=== PATIENT | male | born 1960 | race Caucasian/White ===

== ENCOUNTER → 2018-01-24 07:11 | Outpatient (CLI) | payer OTHER, SELFPAY ==
[2018-01-24 08:53] LABS: Add Manual Diff / Slide Review NO; Basophils Percent Auto 0.8 % (0-2); Eosinophils Percent Auto 4.6 % (2-4); Hematocrit 42.6 % (41-53); Hemoglobin 14.6 g/dL (13.5-17.5); Lymphocytes Percent Auto 36.6 % (25-40); Mean Corpuscular HGB Conc 34.2 % (30-36); Mean Corpuscular Hemoglobin 28.7 PG (26-34); Mean Corpuscular Volume 84.2 fL (80-100); Monocytes Percent Auto 5.4 % (3-14); Neutrophils Absolute Auto 3700 /uL (3000-5900); Neutrophils Percent Auto 52.6 % (50-75); Platelet Count 305 X10^3/uL (150-400); Red Blood Cell Count 5.07 X10^6/uL (4.5-5.9)
[2018-01-24 09:15] LABS: Alanine Aminotransferase 27 IU/L (21-72); Albumin 4.1 g/dL (3.5-5.0); Albumin Globulin Ratio 1.4 (1.0-2.8); Alkaline Phosphatase 50 U/L (38-126); Aspartate Aminotransferase 23 IU/L (17-59); BUN Creatinine Ratio 24.3 (6-22); Bilirubin Total 0.5 mg/dL (0.2-1.3); Blood Urea Nitrogen 17 mg/dL (9-20); Calcium 9.5 mg/dL (8.4-10.2); Carbon Dioxide 31 mmol/L (22-32); Chloride 103 mmol/L (98-107); Cholesterol 216 mg/dL (140-199); Estimated Glomerular Filt Rate > 60.0 mL/min (>60); Glucose 95 mg/dL (70-100); HDL Cholesterol 41 mg/dL (40-60); LDL Cholesterol Calculated 135 mg/dL (<100); Potassium 3.8 mmol/L (3.4-5.1); Sodium 144 mmol/L (137-145); Total Protein 7.1 g/dL (6.3-8.2); Triglycerides 202 mg/dL (35-150)
[2018-01-24 09:35] LABS: Thyroid Stimulating Hormone 1.34 uIU/mL (0.47-4.68)
[2018-01-24 20:14] LABS: HEMOLYSIS < 15 (0-50); Prostate Specific Antigen Scrn 2.47 ng/mL (0.1-4.0)
== END ==
PROVIDERS: PCP Family Medicine; Visit Provider Family Medicine
DX: Z00.00 Encounter for general adult medical examination without abnormal findings (principal); Z12.5 Encounter for screening for malignant neoplasm of prostate
CPT/HCPCS: 36415; 80053; 80061; 84443; 85025; G0103

== ENCOUNTER → 2018-11-01 15:19 | Outpatient (CLI) | payer OTHER, SELFPAY ==
[2018-11-01 16:13] LABS: Add Manual Diff / Slide Review NO; Basophils Absolute Auto 100 /uL (0-100); Eosinophils Absolute Auto 400 /uL (0-450); Eosinophils Percent Auto 5.3 % (2-4); Hematocrit 42.6 % (41-53); Hemoglobin 14.4 g/dL (13.5-17.5); Lymphocytes Absolute Auto 2200 /uL (1100-4500); Lymphocytes Percent Auto 32.3 % (25-40); Mean Corpuscular HGB Conc 33.8 % (30-36); Mean Corpuscular Hemoglobin 28.5 PG (26-34); Mean Corpuscular Volume 84.3 fL (80-100); Monocytes Absolute Auto 500 /uL (0-900); Monocytes Percent Auto 7.3 % (3-14); Neutrophils Absolute Auto 3700 /uL (1500-7000); Neutrophils Percent Auto 54.1 % (50-75); Platelet Count 309 X10^3/uL (150-400); Red Blood Cell Count 5.05 X10^6/uL (4.5-5.9); Red Cell Distribution Width 14.3 % (11.6-14.8); White Blood Cell Count 6.9 X10^3/uL (4.5-11.0)
[2018-11-01 16:15] LABS: Alanine Aminotransferase 26 IU/L (21-72); Albumin 4.2 g/dL (3.5-5.0); Albumin Globulin Ratio 1.7 (1.0-2.8); Alkaline Phosphatase 53 U/L (38-126); Aspartate Aminotransferase 22 IU/L (17-59); BUN Creatinine Ratio 26.3 (6-22); Bilirubin Total 0.4 mg/dL (0.2-1.3); Blood Urea Nitrogen 21 mg/dL (9-20); Calcium 9.8 mg/dL (8.4-10.2); Carbon Dioxide 29 mmol/L (22-32); Chloride 104 mmol/L (98-107); Estimated Glomerular Filt Rate > 60.0 mL/min (>60); Globulin 2.5 g/dL (1.7-4.1); Glucose 99 mg/dL (80-110); HEMOLYSIS < 15 (0-50); Potassium 5.2 mmol/L (3.4-5.1); Sodium 141 mmol/L (137-145); Total Protein 6.7 g/dL (6.3-8.2)
[2018-11-01 16:45] LABS: Thyroid Stimulating Hormone 0.43 uIU/mL (0.47-4.68)
== END ==
PROVIDERS: PCP Family Medicine; Visit Provider Physician Assistant
DX: E04.9 Nontoxic goiter, unspecified (principal)
CPT/HCPCS: 36415; 80053; 84443; 85025

== ENCOUNTER → 2018-11-02 07:40 | Outpatient (CLI) | payer OTHER, SELFPAY ==
--- NOTE | 2018-11-02 07:42 | DI.US.S_ITS ---
PROCEDURE: US THYROID INDICATIONS: MASS RIGHT THYROID TECHNIQUE: Real-time scanning was performed of the thyroid gland, with image documentation. COMPARISON: None. FINDINGS: Right: Thyroid lobe measures 6.4 x 3.4 x 3.1 cm, and is homogeneous in echotexture. Left: Thyroid lobe measures 6.9 x 3.1 x 2.8 cm, and is homogenous in echotexture. Isthmus: 4 mm thick. Nodule number: 1 Location: Right upper pole Size: 2.5 x 2.4 x 2.3 cm. Composition: Predominantly solid, spongiform Echogenicity: Isoechoic Shape: wider than tall. Margins: Smooth Echogenic foci: Punctate Total points: 6 ACR TI-RADS category: Moderately suspicious Nodule number: 2 Location: Mid right lobe Size: 2.9 x 2.4 x 2.4 cm. Composition: Predominantly solid Echogenicity: Isoechoic Shape: wider than tall. Margins: Smooth Echogenic foci: None Total points: 3 ACR TI-RADS category: Mildly suspicious Nodule number: 3 Location: Mid left lobe Size: 1.7 x 1.4 x 1.0 cm. Composition: spongiform Echogenicity: Hypoechoic Shape: wider than tall. Margins: Smooth Echogenic foci: None Total points: 2 ACR TI-RADS category: Not suspicious Nodule number: 4 Location: Inferior pole left lobe Size: 2.9 x 2.7 x 2.5 cm. Composition: Solid Echogenicity: Hypoechoic Shape: wider than tall. Margins: Smooth Echogenic foci: Punctate Total points: 7 ACR TI-RADS category: Highly suspicious Numerous additional smaller thyroid nodules are present bilaterally IMPRESSION: Multiple bilateral thyroid nodules. Recommend further evaluation with ultrasound-guided fine needle aspiration of nodule #4, and nodule #1 in the left and right lobes, respectively. ACR TI-RADS definitions and recommendations: TI-RADS 1 (benign): 0 points. FNA not needed. TI-RADS 2 (not suspicious): 2 points. FNA not needed. TI-RADS 3 (mildly suspicious): 3 points. * FNA if 2.5 cm or larger, follow up if 1.5 cm or larger (at 1, 3, and 5 years). TI-RADS 4 (moderately suspicious): 4-6 points. * FNA if 1.5 cm or larger, follow up if 1 cm or larger (at 1, 2, 3, and 5 years). TI-RADS 5 (highly suspicious): 7 points or more. * FNA if 1 cm or larger, follow up if 0.5 cm or larger (every year for 5 years). Dictated by: Clark Jordan M.D. on 11/02/2018 at 17:09 Approved by: Clark Jordan M.D. on 11/02/2018 at 17:15
== END ==
PROVIDERS: PCP Family Medicine; Visit Provider Physician Assistant
DX: E04.2 Nontoxic multinodular goiter (principal)
CPT/HCPCS: 76536

== ENCOUNTER → 2018-11-07 08:04 | Outpatient (CLI) | payer OTHER, SELFPAY ==
--- NOTE | 2018-11-07 08:33 | DI.CT.S_ITS ---
PROCEDURE: CT SOFT TISSUE NECK W CON INDICATIONS: Mass right side of neck TECHNIQUE: After the administration of intravenous contrast, 3.0 mm axial sections acquired from the sella to the aortic arch. Additional oblique axial 3.0 mm sections acquired through the pharynx. 3 mm thick coronal and sagittal reformats were generated. For radiation dose reduction, the following was used: automated exposure control. COMPARISON: [facility], , US THYROID, 11/02/2018, 8:07. FINDINGS: Image quality: Excellent. Lymph nodes: No enlarged lymph nodes seen throughout the neck. Vessels: Visualized vasculature appears patent. Neck spaces: The oropharynx, nasopharynx, and pharynx demonstrate no mucosal lesions. The vocal cords, false vocal cords, pyriform sinuses, epiglottis, vallecula, and tongue base all appear normal. Extramucosal spaces appear unremarkable. Glands: The parotid and submandibular glands appear normal. Thyroid gland is enlarged and contains multiple heterogeneous enhancing nodules.. Miscellaneous: Visualized brain and orbits appear normal. Lung apices appear clear. Superficial soft tissues appear normal. Bones: No suspicious bony lesions. Spine degenerative disc disease and facet arthropathy.Visualized sinuses and mastoids appear unremarkable. IMPRESSION: 1. Numerous bilateral thyroid nodules not significantly changed compared to prior thyroid ultrasound. Recommend ultrasound guided fine needle aspiration of dominant right and left thyroid lobe nodules. 2. No lymphadenopathy based on size criteria. 3. No mucosal based masses. Dictated by: Aleah Azlu MD, PhD on 11/07/2018 at 13:46 Approved by: Aleah Azul MD, PhD on 11/07/2018 at 13:51
== END ==
PROVIDERS: PCP Family Medicine; Visit Provider Physician Assistant
DX: E04.2 Nontoxic multinodular goiter (principal)
CPT/HCPCS: 70491; Q9967

== ENCOUNTER 2019-01-15 09:24 | Day surgery (SDC) | payer OTHER, SELFPAY ==
[2019-01-12 14:10] VITALS: BMI 29.1
[2019-01-15] VITALS (12 sets, daily range): BP systolic 115–135; BP diastolic 70–85; PULSE 59–88; RESP 12–20; TEMP 35.9–36.9; O2SAT 93–96; BMI 28.5
--- NOTE | 2019-01-15 | PATH_ITS ---
[facility] Accession Number: [id number] . 01 Material submitted: . thyroid gland - RIGHT THYROID LOBE . 01 Clinical history: . A: RIGHT THYROID LOBE, STITCH SANTOS ISTHMUS . 02 Diagnosis: Right Thyroid Lobe, Hemithyroidectomy: Nodular hyperplasia with dominant colloid nodule. No evidence of carcinoma. MRV 01/17/2019 1535 Local . 02 Comment: As part of routine design quality engineer, Dr. Naqvi has reviewed this case and agrees with the above diagnosis. . 02 Electronically signed: . Daniel Voss MD, PhD, Pathologist NPI- [id number] . 01 Gross description: . Received in formalin, labeled right thyroid lobe, stitch santos isthmus, is a right thyroid lobe and isthmus (35 grams, right lobe-6.8 x 4.9 x 2.0 cm; isthmus-2.0 x 1.5 x 0.8 cm). A suture santos the isthmus. The capsule is red-brown, focally calderon, lacerated with adhesions. The cut surface is diffusely veriegated and nodular (0.3 x 0.3 x 0.2 cm-3.0 x 2.5 x 1.8 cm). Ink code: purple-anterior; yellow-posterior; green-medial. Section code: (A1) superior pole, medical office representative perpendicular sections; (A2-A5) medical office representative serial sections submitted superior to inferior; (A6) inferior pole, medical office representative perpendicular sections; (A7) medial resection margin, perpendicular medical office representative sections. ([id number]) /MRV 01/16/2019 1220 Local . 02 Pathologist provided ICD-10: E07.9, E04.2 . 02 CPT . 427757 Performed at: 01 [facility] [address] [place] [address], [place], [place] [id number] MD Cresencio Soliz MD Phone: [phone] Performed at: 02 [facility] [place] [address] [place], [place] [id number] MD Ekaterina Naqvi MD Phone: [phone]
[2019-01-15] MEDS: LACTATED RINGERS 1,000 ML 42 ML IV (10:05)
--- NOTE | 2019-01-15 11:11 | PM.HP.1 ---
History of Present Illness History of Present Illness Date Patient Seen: 01/15/19 Time Patient Seen: 11:00 Chief complaint: [id number] Narrative: The patient is a gentleman here for removal of the right lobe of his thyroid and isthmus ectomy. He probably has a multinodular goiter but only the right side is symptomatic and he does not want the left operated on because it would require him to be on lifelong medication. Patient History Medical History Ankle pain (Chronic) Arthritis (Acute) Chicken pox (Resolved) Foot pain (Chronic) GERD (gastroesophageal reflux disease) (Acute) Hearing loss (Chronic) Low testosterone (Chronic) Recurrent sinusitis (Chronic) Seasonal allergies (Chronic) Sinus drainage (Acute) Surgical History Anesthesia (Resolved) History of foot surgery (Resolved) History of sinus surgery (Resolved) S/P epidural steroid injection (Acute) Status post knee surgery Status post rotator cuff repair Status post rotator cuff repair Family History Brother Age: 62 Mental health problem MS (multiple sclerosis) Father Cancer Mother Alzheimer's dementia Hypertension Social History household members: none occupational status: employed Smoking Status: Never smoker second hand exposure: No alcohol intake: current substance use type: does not use Family & Social History Family History Brother Age: 62 Mental health problem MS (multiple sclerosis) Father Cancer Mother Alzheimer's dementia Hypertension Social History: household members none Tobacco & Substance use: Smoking Status Never smoker alcohol intake current Substance Use Type does not use Meds Home Medications and Allergies Home Medications Medication Instructions Recorded Confirmed Type acyclovir 400 mg PO TID PRN 01/12/19 01/15/19 History naproxen [Naprosyn] 500 mg PO BIDCC PRN 01/12/19 01/15/19 History omeprazole 20 mg PO PRN PRN 01/12/19 01/15/19 History Allergies Allergy/AdvReac Type Severity Reaction Status Date / Time egg Allergy Throat Verified 01/15/19 09:58 swelling Review of Systems Review of Systems ROS Unobtainable: All systems reviewed & are unremarkable except as noted in HPI and below Exam Vital Signs (past 8 hours): - 01/15/19 10:05 Temperature 98.5 F Pulse Rate 66 Respiratory Rate 14 Blood Pressure 135/77 Pulse Oximetry 95 Oxygen Delivery Method Room Air Narrative Exam Narrative: Patient is in no apparent distress. Eyes are nonicteric. Neck is supple. There are no nodes in the neck or supraclavicular areas. Patient has an obvious enlargement of the right side of his thyroid which pushes his sternocleidomastoid forward. Heart regular rate and rhythm without murmur gallop. Abdomen is soft nontender. Lungs are clear to auscultation without rales or rhonchi. Assessment & Plan Assessment & Plan narrative: Patient with a symptomatic mass in his right thyroid FNA is negative for malignancy. He desires removal. I have discussed the procedure with him and the option to remove his entire thyroid but he does not want to do that. Risk of bleeding, infection, scar, nerve injury which could affect his voice all discussed with him. He appears to understand and wishes to proceed.
--- NOTE | 2019-01-15 11:15 | PM.PREOP ---
Pre-operative Note Interval Note History & Physical reviewed/Exam performed by Physician: Yes Changes to H&P: No
[2019-01-15] MEDS: CEFAZOLIN 2 GM/100 ML FROZ.PIGGY IV (11:18)
--- NOTE | 2019-01-15 11:58 | SUR.OPER ---
bilateral arms tucked with gel pads, gel pads under bilatreal gel pads under heels.
[2019-01-15] MEDS: BUPIVACAINE 0.5% (PF) VIAL 30 ML INJ (12:12)
[2019-01-15] MEDS: LACTATED RINGERS 1,000 ML 100 ML IV (13:47)
--- NOTE | 2019-01-15 14:04 | PM.OP.1 ---
Operative Date/Time/Diagnoses Date of procedure: 01/15/19 Time of procedure: 13:41 Pre-op diagnosis: Right thyroid mass causing compression symptoms Post-op diagnosis: same (Probable multinodular goiter.) Procedure & Clinicians Procedure: Right thyroid lobectomy and isthmus ectomy Same procedure as scheduled: Yes Indications: Impression symptoms from enlarged thyroid Surgeon: Oz Gong Hvac Design Mechanical Engineer: Monie Meek Anesthesia Type: General Operative Notes Findings: Multiple nodules in the right thyroid. The upper lobe lesion appeared to be cystic. Prosthetic devices, grafts, tissues, transplants, or devices: None Estimated Blood Loss (mL): 15 Blood products transfused: none Procedure in detail: Patient was placed supine on the operating room table underwent general endotracheal anesthesia. He was then placed in a a semi-Bonilla's position and prepped and draped in the usual fashion incision was made in a skin crease in the lower portion of his neck anteriorly. Was carried down to the level of the strap muscles. The strap muscles were opened in the midline and dissection begun. The strap muscles were dissected off the underlying thyroid with mostly blunt dissection. Middle thyroid vein was identified ligated and divided with Harmonic scalpel. We then turned our attention to the upper pole. Using principally blunt dissection all the musculature was taken off the upper pole. The upper pole vessels were identified. They were ligated near the edge of the gland and divided right on the gland with Harmonic scalpel. I was then able to deliver the upper pole which comprised a lot of this right thyroid lobe into the wound and then dissected the lower pole out. Care was taken to avoid damage to the recurrent laryngeal nerve which was identified and carefully preserved. Vasculature and adhesions were divided using Harmonic scalpel except in the area of the nerve where they were ligated. Ultimately the gland was and we dissected along the trachea to include the isthmus. The isthmus was divided at its juncture with the left thyroid lobe using the Harmonic scalpel. We did not explore the left thyroid lobe. Meticulous hemostasis had been min 18 throughout the operation. We irrigated the right side and any even slight bleeding was brought under control. The strap muscles were closed in the midline with interrupted [id number] 3 0 Vicryl. The subcu was closed with interrupted 3 0 Vicryl and skin was closed running 4 0 Vicryl subcuticular stitch and Steri-Strips. Dressing was applied the patient was extubated taken recovery room good condition Complications: none Post-operative Condition: stable Disposition: PACU Plan for aftercare: Bring in for observation overnight.
[2019-01-15] MEDS: OXYCODONE/ACETAMINOPHEN 5/325 TABLET 1 TAB PO (15:14)
--- NOTE | 2019-01-15 15:25 | PC.NURSE ---
Post-op: Arrived to room 227 at 1415. Wide awake and alert. Was complaining of double vision upon arrival to floor which he now reports has resolved. Denies shortness of breath or difficulty breathing/swallowing, none observed by this literary writer. Lungs CTA, room air 97%. HRR. Dressing to anterior neck dry/intact with pea-sized spot of sanguinous drainage on R lateral portion of dressing. Trach cart in room. Denies N/V, tolerating clear liquids. SCD's placed to BLE's. Oriented to room and call light, encouraged to make needs known. Call light in reach, bed alarm on.
--- NOTE | 2019-01-15 16:27 | PC.NURSE ---
Assumed care of pt at 1500. Pt resting in bed during bedside hand-off. Medicated by float RN. Sherryg to ant neck with scant drainage to R. side. CPOX. Trach kit at bedside. IV S.L. per orders. Student nurse participating in care and medication administration. Any care of meds given under supervision of this RN.
[2019-01-16 06:21] VITALS: BP 115/75; PULSE 82; RESP 20; TEMP 37.3; O2SAT 95
[2019-01-16 07:51] VITALS: BP 136/77; PULSE 75; RESP 16; TEMP 36.9; O2SAT 95
--- NOTE | 2019-01-16 09:42 | PM.DS.1 ---
History of Present Illness History of Present Illness Chief complaint: *OPB*[id number] Narrative: The patient is a gentleman here for removal of the right lobe of his thyroid and isthmus ectomy. He probably has a multinodular goiter but only the right side is symptomatic and he does not want the left operated on because it would require him to be on lifelong medication. Discharge Providers Provider Discharge Date: 01/16/19 Primary care physician: Gui Terry MD Consults: 01/15/19 14:22 Consult to Discharge Planning Routine Comment: Discharge provider: Oz Gong MD Summary Hospital Course Discharge Diagnosis: Thyroid mass. Pathology pending. Probable chronic multinodular goiter. Gastroesophageal reflux disease chronic Hospital Course: Patient underwent a right lobectomy in his cecectomy. His postop course has been smooth. There is no significant swelling. No evidence of cellulitis. Status at Discharge Cognitive/behavioral status at discharge: oriented Functional status at discharge: independent ambulation Overall status at discharge: patient is progressing back to baseline (Throat a little sore) Exam Vital Signs (past 8 hours): - 01/16/19 06:21 01/16/19 07:51 Temperature 99.1 F 98.5 F Pulse Rate 82 75 Respiratory Rate 20 16 Blood Pressure 115/75 136/77 Pulse Oximetry 95 95 Oxygen Delivery Method Room Air Oxygen Flow Rate 0 Discharge Plan Discharge Med Rec/Prescriptions Prescriptions: No Action omeprazole 20 mg Capsule,Delayed Release(Dr/Ec) 20 mg PO DAILY PRN (Reason: Acid Reflux) RF: 0 acyclovir 400 mg tablet 400 mg PO TID PRN (Reason: Breakout) RF: 0 naproxen [Naprosyn] 500 mg tablet 500 mg PO BIDCC PRN (Reason: Pain) RF: 0 Discharge Data Primary Care Provider: Gui Terry Attending Provider: Oz Gong Quality VTE Deep Vein Thrombosis/Pulmonary Embolism Present on Admission: No
--- NOTE | 2019-01-16 09:58 | PC.NURSE ---
Patient alert, oriented denies need for pain meds. Dressing to neck intact. Went over dc meds and instructions with patient, questions answered. Patient has follow up scheduled. Patient walked to vehicle driven by girlfriend. Patient had all belongings.
--- NOTE | 2019-01-16 14:52 | CM.DANOTE ---
DCP; assessment: note: case received this morning and discussed in Team Rounds. Pt is a 58 year old male who admitted for a planned thyroid procedure. Payer: [employer]. Pt was deemed stable for d/c this morning and left for the home setting before Team Rounding was over. No concerns re the d/c today were noted by the care team members.
== END 2019-01-16 10:02 ==
LOC: OR 09:26 → AC 12:09
PROVIDERS: PCP Family Medicine; Visit Provider Specialist
PROC: (CPT 60220; principal; 2019-01-15 10:45)
DX: E04.2 Nontoxic multinodular goiter (principal)
CPT/HCPCS: 60220; J0690; J1100; J2250; J2405; J2704; J3010

== ENCOUNTER → 2019-02-21 07:11 | Outpatient (CLI) | payer OTHER, SELFPAY ==
[2019-01-15 14:24] VITALS: BMI 28.5
[2019-02-21 07:54] LABS: Add Manual Diff / Slide Review NO; Basophils Absolute Auto 100 /uL (0-100); Basophils Percent Auto 0.9 % (0-2); Eosinophils Absolute Auto 400 /uL (0-450); Hematocrit 42.3 % (41-53); Hemoglobin 14.2 g/dL (13.5-17.5); Lymphocytes Absolute Auto 2200 /uL (1100-4500); Lymphocytes Percent Auto 30.5 % (25-40); Mean Corpuscular HGB Conc 33.6 % (30-36); Mean Corpuscular Hemoglobin 28.5 PG (26-34); Mean Corpuscular Volume 84.8 fL (80-100); Monocytes Absolute Auto 500 /uL (0-900); Monocytes Percent Auto 7.2 % (3-14); Neutrophils Absolute Auto 4000 /uL (1500-7000); Neutrophils Percent Auto 55.4 % (50-75); Platelet Count 309 X10^3/uL (150-400); Red Blood Cell Count 4.98 X10^6/uL (4.5-5.9); Red Cell Distribution Width 13.9 % (11.6-14.8); White Blood Cell Count 7.3 X10^3/uL (4.5-11.0)
[2019-02-21 08:07] LABS: Alanine Aminotransferase 27 IU/L (<50); Albumin 4.1 g/dL (3.5-5.0); Albumin Globulin Ratio 1.6 (1.0-2.8); Alkaline Phosphatase 65 U/L (38-126); Aspartate Aminotransferase 27 IU/L (17-59); BUN Creatinine Ratio 28.6 (6-22); Bilirubin Total 0.5 mg/dL (0.2-1.3); Blood Urea Nitrogen 20 mg/dL (9-20); Calcium 9.6 mg/dL (8.4-10.2); Carbon Dioxide 30 mmol/L (22-32); Chloride 101 mmol/L (98-107); Cholesterol 199 mg/dL (140-199); Estimated Glomerular Filt Rate > 60.0 mL/min (>60); Globulin 2.6 g/dL (1.7-4.1); Glucose 101 mg/dL (80-110); HDL Cholesterol 37 mg/dL (40-60); HEMOLYSIS < 15 (0-50); LDL Cholesterol Calculated 130 mg/dL (<100); Potassium 4.6 mmol/L (3.4-5.1); Sodium 139 mmol/L (137-145); Total Protein 6.7 g/dL (6.3-8.2); Triglycerides 161 mg/dL (35-150)
[2019-02-21 08:36] LABS: Prostate Specific Antigen Scrn 2.69 ng/mL (0.1-4.0)
[2019-02-21 08:37] LABS: Thyroid Stimulating Hormone 1.63 uIU/mL (0.47-4.68)
== END ==
PROVIDERS: Specialist; PCP Family Medicine; Visit Provider Family Medicine
DX: Z00.00 Encounter for general adult medical examination without abnormal findings (principal); Z12.5 Encounter for screening for malignant neoplasm of prostate; E05.00 Thyrotoxicosis with diffuse goiter without thyrotoxic crisis or storm
CPT/HCPCS: 36415; 80053; 80061; 84443; 85025; G0103

== ENCOUNTER → 2019-10-30 10:13 | Outpatient (CLI) | payer OTHER, SELFPAY ==
[2019-01-15 14:24] VITALS: BMI 28.5
[2019-10-31 08:07] LABS: COVID19 Sendout Not Detected (Not Detect)
== END ==
PROVIDERS: PCP Family Medicine; Visit Provider Physician Assistant
DX: Z11.59 Encounter for screening for other viral diseases (principal)
CPT/HCPCS: 87635

== ENCOUNTER → 2020-03-12 09:00 | Outpatient (CLI) | payer OTHER, SELFPAY ==
[2019-01-15 14:24] VITALS: BMI 28.5
[2020-03-12 09:42] LABS: Add Manual Diff / Slide Review NO; Basophils Absolute Auto 100 /uL (0-100); Basophils Percent Auto 1.3 % (0-2); Eosinophils Absolute Auto 300 /uL (0-450); Eosinophils Percent Auto 4.8 % (2-4); Hematocrit 43.5 % (41-53); Hemoglobin 14.6 g/dL (13.5-17.5); Lymphocytes Absolute Auto 2000 /uL (1100-4500); Lymphocytes Percent Auto 35.3 % (25-40); Mean Corpuscular HGB Conc 33.5 % (30-36); Mean Corpuscular Hemoglobin 28.3 PG (26-34); Mean Corpuscular Volume 84.3 fL (80-100); Monocytes Absolute Auto 400 /uL (0-900); Monocytes Percent Auto 6.6 % (3-14); Neutrophils Absolute Auto 2900 /uL (1500-7000); Platelet Count 280 X10^3/uL (150-400); Red Blood Cell Count 5.16 X10^6/uL (4.5-5.9); Red Cell Distribution Width 14.6 % (11.6-14.8); White Blood Cell Count 5.7 X10^3/uL (4.5-11.0)
[2020-03-12 10:40] LABS: Alanine Aminotransferase 21 IU/L (<50); Albumin 4.1 g/dL (3.5-5.0); Albumin Globulin Ratio 1.5 (1.0-2.8); Alkaline Phosphatase 60 U/L (38-126); Aspartate Aminotransferase 25 IU/L (17-59); BUN Creatinine Ratio 21.5 (6-22); Bilirubin Total 0.5 mg/dL (0.2-1.3); Blood Urea Nitrogen 14 mg/dL (9-20); Calcium 9.6 mg/dL (8.4-10.2); Carbon Dioxide 30 mmol/L (22-32); Chloride 104 mmol/L (98-107); Cholesterol 191 mg/dL (140-199); Estimated Glomerular Filt Rate > 60.0 mL/min (>60); Globulin 2.7 g/dL (1.7-4.1); Glucose 105 mg/dL (80-110); HDL Cholesterol 44 mg/dL (40-60); HEMOLYSIS < 15 (0-50); LDL Cholesterol Calculated 124 mg/dL (<100); Potassium 4.9 mmol/L (3.4-5.1); Sodium 138 mmol/L (137-145); Total Protein 6.8 g/dL (6.3-8.2); Triglycerides 113 mg/dL (35-150)
[2020-03-12 10:52] LABS: Free T3, Triiodothyronine Free 3.79 pg/mL (2.77-5.27); Free T4, Direct Thyroxine 1.14 ng/dL (0.78-2.19)
[2020-03-12 11:05] LABS: Prostate Specific Antigen Scrn 3.39 ng/mL (0.1-4.0)
== END ==
PROVIDERS: PCP Family Medicine; Referring Provider Family Medicine; Visit Provider Family Medicine
DX: Z00.00 Encounter for general adult medical examination without abnormal findings (principal); E04.1 Nontoxic single thyroid nodule; E05.00 Thyrotoxicosis with diffuse goiter without thyrotoxic crisis or storm; Z12.5 Encounter for screening for malignant neoplasm of prostate
CPT/HCPCS: 36415; 80053; 80061; 84439; 84443; 84481; 85025; G0103

== ENCOUNTER → 2020-05-19 08:57 | Outpatient (CLI) | payer OTHER, SELFPAY ==
[2019-01-15 14:24] VITALS: BMI 28.5
[2020-05-19 11:58] LABS: COVID19 -Nasal RAPID Negative (Negative)
== END ==
PROVIDERS: PCP Family Medicine; Visit Provider Specialist
DX: Z20.822 Contact with and (suspected) exposure to COVID-19 (principal)
CPT/HCPCS: 87635; C9803

== ENCOUNTER 2020-05-20 07:48 | Day surgery (SDC) | payer OTHER, SELFPAY ==
[2019-01-15 14:24] VITALS: BMI 28.5
--- NOTE | 2020-05-20 | PATH_ITS ---
[facility] Accession Number: [id number] . 01 Material submitted: . PART A: colon - TRANSVERSE COLON BIOPSY AT 50 PART B: colon - COLON BIOPSY AT 15 . 02 Diagnosis: A. Transverse Colon, 50 cm, Biopsy: Tubular adenoma. . B. Colon, 15, Biopsy: Hyperplastic polyp. MRV 05/23/2020 1307 Local . 02 Electronically signed: . Ekaterina Naqvi MD, Pathologist NPI- [id number] . 01 Gross description: . Part A: TRANSVERSE COLON BIOPSY AT 50: Received in formalin are 2 fragment(s) of oreilly, soft tissue measuring 0.1 x 0.1 x 0.1 cm to 0.4 x 0.2 x 0.2 cm submitted entirely in 1 cassette(s) Part B: COLON BIOPSY AT 15: Received in formalin are 3 fragment(s) of oreilly, soft tissue measuring 0.1 x 0.1 x 0.1 cm to 0.5 x 0.4 x 0.2 cm submitted entirely in 1 cassette(s) /CRISTA 05/22/2020 0031 Local . 02 Pathologist provided ICD-10: D12.3 . 02 CPT . 755824, 603770 Performed at: [address] [facility] [address], [place], [place] [id number] MD Cresencio Soliz MD Phone: [phone] Performed at: 02 [facility] [address] [place], [place] [id number] MD Ekaterina Naqvi MD Phone: [phone]
[2020-05-20 08:13] VITALS: BP 139/89; PULSE 68; RESP 18; TEMP 36.8; O2SAT 98; BMI 29.5
[2020-05-20] MEDS: LACTATED RINGERS 1,000 ML 100 ML IV (08:22)
--- NOTE | 2020-05-20 09:18 | PM.HP.1 ---
History of Present Illness History of Present Illness Date Patient Seen: 05/20/20 Time Patient Seen: 09:18 Chief complaint: SDC Narrative: The patient is here for screening colonoscopy. He has a personal history of polyps. Last colonoscopy was 6 years ago. Patient History Medical History Ankle pain Arthritis Chicken pox Foot pain GERD (gastroesophageal reflux disease) Hearing loss Low testosterone Nodular thyroid disease Recurrent sinusitis Seasonal allergies Sinus drainage Surgical History Anesthesia History of foot surgery History of sinus surgery S/P epidural steroid injection Status post knee surgery Status post rotator cuff repair Status post rotator cuff repair Family & Social History Family History Brother Age: 63 Mental health problem MS (multiple sclerosis) Father Cancer Mother Alzheimer's dementia Hypertension Social History: household members none Tobacco & Substance use: Smoking Status Never smoker alcohol intake current alcohol intake frequency holiday/special occasion Substance Use Type does not use Meds Home Medications and Allergies Home Medications Medication Instructions Recorded Confirmed Type omeprazole 20 mg PO DAILY PRN 01/12/19 05/20/20 History finasteride 5 mg tablet 5 mg PO DAILY #90 tab 03/18/20 05/20/20 Rx sildenafil (pulm.hypertension) 20 See Rx Instructions PO TID PRN 03/18/20 05/20/20 Rx mg tablet #100 tab acyclovir 400 mg PO ONCE PRN 05/20/20 05/20/20 History cyclobenzaprine 10 mg PO TID PRN 05/20/20 05/20/20 History naproxen 500 mg PO BID PRN 05/20/20 05/20/20 History Allergies Allergy/AdvReac Type Severity Reaction Status Date / Time egg Allergy Throat Verified 05/20/20 08:28 swelling Review of Systems Review of Systems ROS: Yes All systems reviewed with the patient and are negative except as otherwise documented Exam Vital Signs (past 8 hours): - 05/20/20 08:13 Temperature 98.3 F Pulse Rate 68 Respiratory Rate 18 Blood Pressure 139/89 Pulse Oximetry 98 Oxygen Delivery Method Room Air Narrative Exam Narrative: Pleasant cooperative patient no apparent distress. Lungs are clear to auscultation. No rales or rhonchi. Heart regular rate and rhythm no murmur gallop. Abdomen is soft nontender without mass. No obvious hernias. Patient is alert and oriented x3. Assessment & Plan Assessment & Plan narrative: The patient for a screening colonoscopy. I have discussed the procedure with them. Risks of bleeding, perforation which would necessitate major operation, failure to find remove all lesions, the potential tattoo were all discussed. All questions were answered. They wished to proceed.
--- NOTE | 2020-05-20 09:20 | PM.PREOP ---
Pre-operative Note COVID-19 COVID-19 status: Negative Result date/Date tested (Pos, Neg/Pending): 05/19/20 Interval Note History & Physical reviewed/Exam performed by Physician: Yes Changes to H&P: No ASA Class (for procedural sedation): I
[2020-05-20] MEDS: fentaNYL 250 MCG/5 ML INJ IV (09:37)
[2020-05-20] MEDS: MIDAZOLAM 5 MG/5 ML VIAL IV (09:37)
--- NOTE | 2020-05-20 09:53 | PM.OP.ENDO ---
Operative Date/Time/Diagnoses Date of procedure: 05/20/20 Time of procedure: 09:53 Pre-op diagnosis: Screening exam. Last exam 6 years ago. Personal history of polyps. Post-op diagnosis: same (Three small polyps removed.) Procedure & Clinicians Study performed: Colonoscopy with cold biopsy Same procedure as scheduled: Yes Indications: Screening exam Surgeon: Oz Gong Procedure Notes SCOAP/Timeout: Performed Procedure in detail: The patient was placed in the left lateral decubitus position and underwent IV sedation directed by the surgeon consisting of fentanyl and Versed. Digital exam was unremarkable. Prostate is normal size without mass.. The scope was inserted and advanced through the rectum into the sigmoid, descending, transverse, and ascending colon. One small polyp was noted at 15 cm from the anal verge which I decided to remove on the way out. Two small adjacent polyps were encountered on the way in which I biopsied and removed.(on egress they were noted to be at 50 cm from the anal verge). Pressure was applied to make her way into the cecum.. The cecum was reached identified by the ileocecal valve and the appendiceal opening. The ileocecal valve was briefly cannulated. The terminal ileum was normal in appearance. The scope was gradually brought out. No other Polyps were found. The polyp at 15 cm was removed with cold biopsy forceps. The scope ultimately was retroflexed in the rectum. The appearance was normal except for a minor scarring.. The scope was removed and the patient tolerated the procedure well. The prep was very good Scope withdrawal time: 9 minutes(11 total) Sedation minutes: 29 Findings: polyp Specimen(s): other (Polyp) Complications: none Post-procedure Recommendations: Colonscopy in 5 years Follow up: as needed Disposition: PACU
[2020-05-20 09:57] VITALS: BP 112/74; PULSE 83; RESP 20; TEMP 37; O2SAT 92
[2020-05-20 10:02] VITALS: BP 105/67; PULSE 79; RESP 17; O2SAT 93
[2020-05-20 10:06] VITALS: BP 111/75; PULSE 76; RESP 14; TEMP 36.9; O2SAT 94
== END 2020-05-20 10:30 | disposition home or self-care (01) ==
PROVIDERS: PCP Family Medicine; Referring Provider Specialist; Visit Provider Specialist
PROC: 0DJD8ZZ Inspection of Lower Intestinal Tract, Via Natural or Artificial Opening Endoscopic (ICD-10-PCS; CPT 45378; principal; 2020-05-20 09:15)
DX: Z12.11 Encounter for screening for malignant neoplasm of colon (principal); Z86.010 Personal history of colon polyps; D12.3 Benign neoplasm of transverse colon
CPT/HCPCS: 45380; 99152; 99153; J2250; J3010

== ENCOUNTER → 2020-07-15 08:42 | Outpatient (CLI) | payer OTHER, SELFPAY ==
[2019-01-15 14:24] VITALS: BMI 28.5
[2020-07-15 09:50] LABS: Prostate Specific Antigen Scrn 2.11 ng/mL (0.1-4.0)
== END ==
PROVIDERS: PCP Family Medicine; Referring Provider Family Medicine; Visit Provider Family Medicine
DX: N40.1 Benign prostatic hyperplasia with lower urinary tract symptoms (principal); R35.0 Frequency of micturition
CPT/HCPCS: 36415; G0103

== ENCOUNTER → 2021-03-16 09:25 | Outpatient (CLI) | payer OTHER, SELFPAY ==
[2019-01-15 14:24] VITALS: BMI 28.5
[2021-03-16 12:05] LABS: Add Manual Diff / Slide Review NO; Basophils Absolute Auto 100 /uL (0-100); Basophils Percent Auto 1.2 % (0-2); Eosinophils Absolute Auto 200 /uL (0-450); Eosinophils Percent Auto 4.5 % (2-4); Lymphocytes Absolute Auto 1800 /uL (1100-4500); Lymphocytes Percent Auto 32.9 % (25-40); Mean Corpuscular HGB Conc 33.4 % (30-36); Mean Corpuscular Hemoglobin 27.8 PG (26-34); Mean Corpuscular Volume 83.3 fL (80-100); Monocytes Absolute Auto 300 /uL (0-900); Monocytes Percent Auto 5.9 % (3-14); Neutrophils Absolute Auto 3000 /uL (1500-7000); Neutrophils Percent Auto 55.5 % (50-75); Platelet Count 283 X10^3/uL (150-400); Red Blood Cell Count 5.04 X10^6/uL (4.5-5.9); Red Cell Distribution Width 14.3 % (11.6-14.8); White Blood Cell Count 5.4 X10^3/uL (4.5-11.0)
[2021-03-16 12:44] LABS: Thyroid Stimulating Hormone 1.04 uIU/mL (0.47-4.68)
[2021-03-16 13:12] LABS: Alanine Aminotransferase 23 IU/L (<50); Albumin Globulin Ratio 1.7 (1.0-2.8); Alkaline Phosphatase 47 U/L (38-126); Aspartate Aminotransferase 25 IU/L (17-59); BUN Creatinine Ratio 18.7 (6-22); Bilirubin Total 0.4 mg/dL (0.2-1.3); Blood Urea Nitrogen 14 mg/dL (9-20); Calcium 9.5 mg/dL (8.4-10.2); Carbon Dioxide 29 mmol/L (22-32); Chloride 105 mmol/L (98-107); Cholesterol 196 mg/dL (140-199); Estimated Glomerular Filt Rate > 60.0 mL/min (>60); Globulin 2.4 g/dL (1.7-4.1); Glucose 94 mg/dL (80-110); HDL Cholesterol 43 mg/dL (40-60); HEMOLYSIS < 15 (0-50); LDL Cholesterol Calculated 127 mg/dL (<100); Potassium 5.2 mmol/L (3.4-5.1); Sodium 141 mmol/L (137-145); Total Protein 6.4 g/dL (6.3-8.2); Triglycerides 130 mg/dL (35-150)
[2021-03-16 13:40] LABS: Prostate Specific Antigen Scrn 1.77 ng/mL (0.1-4.0)
== END ==
PROVIDERS: PCP Family Medicine; Referring Provider Family Medicine; Visit Provider Family Medicine
DX: Z00.00 Encounter for general adult medical examination without abnormal findings (principal); Z12.5 Encounter for screening for malignant neoplasm of prostate; E04.1 Nontoxic single thyroid nodule
CPT/HCPCS: 36415; 80053; 80061; 84443; 85025; G0103

== ENCOUNTER → 2021-09-10 10:09 | Outpatient (CLI) | payer OTHER, SELFPAY ==
[2019-01-15 14:24] VITALS: BMI 28.5
--- NOTE | 2021-09-10 10:10 | DI.US.S_ITS ---
PROCEDURE: US THYROID INDICATIONS: GOITER; HX RIGHT THYROIDECTOMY TECHNIQUE: Real-time scanning was performed of the thyroid gland, with image documentation. COMPARISON: [facility], US, US THYROID, 11/02/2018, 8:07. FINDINGS: Right: The right thyroid lobe is surgically absent. Left: Thyroid lobe measures 6.3 x 2.7 x 3.6 cm, and is homogenous in echotexture. Isthmus: 2.3 mm thick. Nodule number: 1 Location: Left lateral mid Size: 1.8 x 1.4 x 2.7 cm. Previously measured 1.7 x 1.4 x 1.0 cm Composition: Solid Echogenicity: Hypoechoic Shape: wider than tall. Margins: Ill-defined Echogenic foci: None Total points: 4 ACR TI-RADS category: 4 Nodule number: 2 Location: Left inferior Size: 2.5 x 1.6 x 2.5 cm. Composition: Solid Echogenicity: Hypoechoic Shape: wider than tall. Margins: Ill-defined Echogenic foci: None Total points: 4 ACR TI-RADS category: 4 IMPRESSION: 1. Lateral mid thyroid nodule which has increased in size from the prior study. FNA recommended. 2. Stable left inferior thyroid nodule when compared with the study from 2019. ACR TI-RADS definitions and recommendations: TI-RADS 1 (benign): 0 points. FNA not needed. TI-RADS 2 (not suspicious): 2 points. FNA not needed. TI-RADS 3 (mildly suspicious): 3 points. * FNA if 2.5 cm or larger, follow up if 1.5 cm or larger (at 1, 3, and 5 years). TI-RADS 4 (moderately suspicious): 4-6 points. * FNA if 1.5 cm or larger, follow up if 1 cm or larger (at 1, 2, 3, and 5 years). TI-RADS 5 (highly suspicious): 7 points or more. * FNA if 1 cm or larger, follow up if 0.5 cm or larger (every year for 5 years). Dictated by: Charu Pope M.D. on 09/10/2021 at 13:37 Approved by: Charu Pope M.D. on 09/10/2021 at 13:41
== END ==
PROVIDERS: PCP Family Medicine; Referring Provider Registered Nurse Diabetes Educator; Visit Provider Registered Nurse Diabetes Educator
DX: E04.9 Nontoxic goiter, unspecified (principal)
CPT/HCPCS: 76536

== ENCOUNTER → 2022-03-16 08:07 | Outpatient (CLI) | payer OTHER, SELFPAY ==
[2019-01-15 14:24] VITALS: BMI 28.5
[2022-03-16 09:28] LABS: Add Manual Diff / Slide Review NO; Basophils Absolute Auto 100 /uL (0-100); Basophils Percent Auto 1.1 % (0-2); Eosinophils Absolute Auto 300 /uL (0-450); Eosinophils Percent Auto 5.3 % (2-4); Hematocrit 42.6 % (41-53); Hemoglobin 14.2 g/dL (13.5-17.5); Lymphocytes Absolute Auto 2300 /uL (1100-4500); Lymphocytes Percent Auto 37.4 % (25-40); Mean Corpuscular HGB Conc 33.2 % (30-36); Mean Corpuscular Hemoglobin 27.5 PG (26-34); Mean Corpuscular Volume 82.9 fL (80-100); Monocytes Absolute Auto 400 /uL (0-900); Monocytes Percent Auto 6.7 % (3-14); Neutrophils Absolute Auto 3000 /uL (1500-7000); Neutrophils Percent Auto 49.5 % (50-75); Platelet Count 299 X10^3/uL (150-400); Red Blood Cell Count 5.14 X10^6/uL (4.5-5.9); Red Cell Distribution Width 14.6 % (11.6-14.8); White Blood Cell Count 6.1 X10^3/uL (4.5-11.0)
[2022-03-16 10:19] LABS: Alanine Aminotransferase 26 IU/L (<50); Albumin 3.9 g/dL (3.5-5.0); Albumin Globulin Ratio 1.6 (1.0-2.8); Alkaline Phosphatase 53 U/L (38-126); Aspartate Aminotransferase 22 IU/L (17-59); BUN Creatinine Ratio 23.1 (6-22); Bilirubin Total 0.5 mg/dL (0.2-1.3); Blood Urea Nitrogen 15 mg/dL (9-20); Calcium 9.1 mg/dL (8.4-10.2); Carbon Dioxide 26 mmol/L (22-32); Chloride 103 mmol/L (98-107); Cholesterol 146 mg/dL (140-199); Estimated Glomerular Filt Rate > 60 mL/min (>60); Globulin 2.5 g/dL (1.7-4.1); Glucose 102 mg/dL (80-110); HDL Cholesterol 43 mg/dL (40-60); HEMOLYSIS < 15 (0-50); LDL Cholesterol Calculated 82 mg/dL (<100); Potassium 4.3 mmol/L (3.4-5.1); Sodium 137 mmol/L (137-145); Total Protein 6.4 g/dL (6.3-8.2); Triglycerides 104 mg/dL (35-150)
[2022-03-16 10:52] LABS: Prostate Specific Antigen Scrn 1.47 ng/mL (0.1-4.0)
[2022-03-16 12:23] LABS: Thyroid Stimulating Hormone 1.04 uIU/mL (0.47-4.68)
== END ==
PROVIDERS: PCP Family Medicine; Referring Provider Family Medicine; Visit Provider Family Medicine
DX: Z00.00 Encounter for general adult medical examination without abnormal findings (principal); E04.1 Nontoxic single thyroid nodule; E78.2 Mixed hyperlipidemia; Z12.5 Encounter for screening for malignant neoplasm of prostate
CPT/HCPCS: 36415; 80053; 80061; 84443; 85025; G0103

== ENCOUNTER → 2023-03-21 09:09 | Outpatient (CLI) | payer OTHER, SELFPAY ==
[2019-01-15 14:24] VITALS: BMI 28.5
[2023-03-21 10:14] LABS: Alanine Aminotransferase 26 IU/L (<50); Albumin 4.1 g/dL (3.5-5.0); Albumin Globulin Ratio 1.3 (1.0-2.8); Alkaline Phosphatase 48 U/L (38-126); Aspartate Aminotransferase 25 IU/L (17-59); BUN Creatinine Ratio 22.7 (6-22); Bilirubin Total 0.6 mg/dL (0.2-1.3); Blood Urea Nitrogen 15 mg/dL (9-20); Calcium 9.7 mg/dL (8.4-10.2); Carbon Dioxide 30 mmol/L (22-32); Chloride 101 mmol/L (98-107); Cholesterol 156 mg/dL (140-199); Estimated Glomerular Filt Rate > 60 mL/min (>60); Globulin 3.1 g/dL (1.7-4.1); Glucose 107 mg/dL (80-110); HDL Cholesterol 46 mg/dL (40-60); HEMOLYSIS < 15 (0-50); LDL Cholesterol Calculated 92 mg/dL (<100); Potassium 4.4 mmol/L (3.4-5.1); Sodium 138 mmol/L (137-145); Total Protein 7.2 g/dL (6.3-8.2); Triglycerides 91 mg/dL (35-150)
[2023-03-21 10:45] LABS: Prostate Specific Antigen Scrn 1.64 ng/mL (0.1-4.0)
[2023-03-21 10:50] LABS: TSH w/ Reflex to FT4 0.84 uIU/mL (0.47-4.68)
[2023-03-22 05:26] LABS: Apolipoprotein B 73 mg/dL (<90)
[2023-03-23 18:22] LABS: Lipoprotein (a) 23.1 nmol/L (<75.0)
== END ==
PROVIDERS: PCP Family Medicine; Referring Provider Family Medicine; Visit Provider Family Medicine
DX: Z12.5 Encounter for screening for malignant neoplasm of prostate (principal); E78.2 Mixed hyperlipidemia; E04.1 Nontoxic single thyroid nodule; N40.1 Benign prostatic hyperplasia with lower urinary tract symptoms; R35.0 Frequency of micturition; Z79.899 Other long term (current) drug therapy
CPT/HCPCS: 36415; 80053; 80061; 82172; 83695; 84443; G0103

== ENCOUNTER → 2023-03-24 09:07 | Outpatient (CLI) | payer OTHER, SELFPAY ==
[2019-01-15 14:24] VITALS: BMI 28.5
[2023-03-24 10:19] LABS: Add Manual Diff / Slide Review NO; Basophils Absolute Auto 100 /uL (0-100); Basophils Percent Auto 1.4 % (0-2); Eosinophils Absolute Auto 300 /uL (0-450); Eosinophils Percent Auto 4.8 % (2-4); Hematocrit 42.4 % (41-53); Hemoglobin 14.4 g/dL (13.5-17.5); Lymphocytes Absolute Auto 1800 /uL (1100-4500); Lymphocytes Percent Auto 31.8 % (25-40); Mean Corpuscular Hemoglobin 28.2 PG (26-34); Mean Corpuscular Volume 83.1 fL (80-100); Monocytes Absolute Auto 400 /uL (0-900); Monocytes Percent Auto 7.4 % (3-14); Neutrophils Absolute Auto 3100 /uL (1500-7000); Neutrophils Percent Auto 54.6 % (50-75); Platelet Count 271 X10^3/uL (150-400); Red Cell Distribution Width 14.6 % (11.6-14.8); White Blood Cell Count 5.6 X10^3/uL (4.5-11.0)
[2023-03-24 10:44] LABS: Prealbumin 29.1 mg/dL (17.6-36.0)
[2023-03-24 10:53] LABS: Vitamin D 25 Hydroxy (D3) 31.1 ng/mL (30.0-100.0)
== END ==
PROVIDERS: PCP Family Medicine; Referring Provider Family Medicine; Visit Provider Family Medicine
DX: N40.0 Benign prostatic hyperplasia without lower urinary tract symptoms (principal); E78.2 Mixed hyperlipidemia; M54.50 Low back pain, unspecified; R73.9 Hyperglycemia, unspecified; M17.12 Unilateral primary osteoarthritis, left knee
CPT/HCPCS: 36415; 82306; 83036; 84134; 85025

== ENCOUNTER → 2024-06-23 07:56 | Outpatient (CLI) | payer OTHER, MEDICARE, SELFPAY ==
[2019-01-15 14:24] VITALS: BMI 28.5
[2024-06-23 09:10] LABS: Hemoglobin A1C% w Est Avg Glu 5.8 % (4.0-6.0)
[2024-06-23 09:21] LABS: Add Manual Diff / Slide Review NO; Basophils Absolute Auto 0 /uL (0-100); Basophils Percent Auto 0.5 % (0-2); Eosinophils Absolute Auto 300 /uL (0-450); Eosinophils Percent Auto 4.2 % (2-4); Hematocrit 42.9 % (41-53); Hemoglobin 14.2 g/dL (13.5-17.5); Lymphocytes Absolute Auto 2100 /uL (1100-4500); Lymphocytes Percent Auto 26.2 % (25-40); Mean Corpuscular HGB Conc 33.2 % (30-36); Mean Corpuscular Volume 81.3 fL (80-100); Monocytes Absolute Auto 600 /uL (0-900); Monocytes Percent Auto 7.1 % (3-14); Neutrophils Absolute Auto 4900 /uL (1500-7000); Platelet Count 319 X10^3/uL (150-400); Red Blood Cell Count 5.29 X10^6/uL (4.5-5.9); Red Cell Distribution Width 16.3 % (11.6-14.8)
[2024-06-23 09:58] LABS: Alanine Aminotransferase 22 IU/L (<50); Albumin 4.1 g/dL (3.5-5.0); Albumin Globulin Ratio 1.6 (1.0-2.8); Alkaline Phosphatase 67 U/L (38-126); Aspartate Aminotransferase 24 IU/L (17-59); BUN Creatinine Ratio 33.3 (6-22); Bilirubin Total 0.4 mg/dL (0.2-1.3); Blood Urea Nitrogen 23 mg/dL (9-20); Calcium 9.6 mg/dL (8.4-10.2); Carbon Dioxide 27 mmol/L (22-32); Chloride 104 mmol/L (98-107); Cholesterol 147 mg/dL (140-199); Estimated Glomerular Filt Rate > 60 mL/min (>60); Globulin 2.5 g/dL (1.7-4.1); Glucose 100 mg/dL (80-110); HDL Cholesterol 43 mg/dL (40-60); HEMOLYSIS < 15 (0-50); LDL Cholesterol Calculated 79 mg/dL (<100); Sodium 140 mmol/L (137-145); Total Protein 6.6 g/dL (6.3-8.2); Triglycerides 124 mg/dL (35-150)
[2024-06-23 10:25] LABS: TSH w/ Reflex to FT4 0.93 uIU/mL (0.47-4.68)
[2024-06-23 10:27] LABS: Prostate Specific Antigen Scrn 1.49 ng/mL (0.1-4.0)
[2024-06-24 09:10] LABS: Apolipoprotein B 72 mg/dL (<90)
== END ==
PROVIDERS: PCP Family Medicine; Referring Provider Family Medicine; Visit Provider Family Medicine
DX: E78.2 Mixed hyperlipidemia (principal); E05.00 Thyrotoxicosis with diffuse goiter without thyrotoxic crisis or storm; N40.1 Benign prostatic hyperplasia with lower urinary tract symptoms; R35.0 Frequency of micturition; E04.1 Nontoxic single thyroid nodule; Z13.1 Encounter for screening for diabetes mellitus; Z12.5 Encounter for screening for malignant neoplasm of prostate
CPT/HCPCS: 36415; 80053; 80061; 82172; 83036; 84443; 85025; G0103